=== PATIENT | male | born 1995 | race Caucasian/White ===

== ENCOUNTER 2019-03-07 19:15 | Emergency (ER) | payer OTHER ==
[2019-03-07 19:40] VITALS: BP 116/75; PULSE 64; TEMP 97.5; BMI 33.6
[2019-03-07] MEDS ORDERED: IBUPROFEN 400 MG TABLET (FP) PO ONE ×2 (19:45→19:46)
--- NOTE | 2019-03-07 19:48 | PDOC ---
Documentation entered by Angelika Ron SCRIBE, acting as scribe for Taylor Park MD. Taylor Park MD: This documentation has been prepared by the Asaf elder Xhesika, SCRIBE, under my direction and personally reviewed by me in its entirety. I confirm that the documentation accurately reflects all work, treatment, procedures, and medical decision making performed by me. 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 The patient states he has increased pain and swelling in the area just below the rectum on the right. The patient states he took Motrin at around 1:30pm with mild to no relief. The patient denies chest pain, shortness of breath, headache or dizziness. The patient denies fever, chills, nausea, vomit, diarrhea or constipation. The patient denies dysuria, frequency, urgency or hematuria. PAST MEDICAL HISTORY: Turrets disease and previous abscess (under L axillary) PAST SURGICAL HISTORY: no significant history FAMILY HISTORY: no pertinent history SOCIAL HISTORY: Pt lives with family and is employed. MEDICATIONS: reviewed ALLERGIES: As per nursing notes 03/07/19 19:48 Procedure note: Incision and drainage of an abscess Abscess was anesthetized with 1% lidocaine and then opened with a #11 blade approximately 1 mL opening Amount of purulent material was immediately drained and on expression further purulent material Patient's were broken up and packing was placed in the abscess cavity He was placed and patient was given Motrin prior to discharge Assessment plan: This is a 46-year-old male comes in with an abscess of his upper scrotal area just below the rectum. Patient has had similar abscesses in his axilla in the past. Abscesses draining at the time of my evaluation abscess was incised and drained and packing was placed. Patient discharged with instructions on wound care and hot soaks Past History - Past Medical History Allergies/Adverse Reactions: Allergies Allergy/AdvReac Type Severity Reaction Status Date / Time diphenhydramine Allergy Unknown Verified 03/07/19 19:22 Penicillins Allergy Unknown Verified 03/07/19 19:22 vancomycin Allergy Unknown Verified 03/07/19 19:22 Home Medications: Ambulatory Orders Ibuprofen 600 mg PO TID PRN 03/07/19 Review of Systems - Review of Systems Able to Perform ROS?: Yes Comments:: 03/07/19 19:50 General: No fevers or chills, no weakness, no weight loss HEENT: No change in vision. No sore throat,. No ear pain CardioVascular: No chest pain or shortness of breath Respiratory:No cough, or wheezing. Gastrointestinal: no nausea, vomiting, diarrhea or constipation, No rectal bleeding Genitourinary: No dysuria, hematuria, or frequency Musculoskeletal: No joint or muscle pain or swelling Neurologic: No headache, vertigo, dizziness or loss of consciousness Psychiatric: nor depression Skin: (+) abscess below R rectum. No easy bruising Endocrine: no increased thirst or abnormal weight change Allergic: no skin or latex allergy All other systems reviewed and normal *Physical Exam - Vital Signs Last Vital Signs Temp Pulse Resp BP Pulse Ox 97.5 F L 64 18 116/75 100 03/07/19 19:21 03/07/19 19:21 03/07/19 19:21 03/07/19 19:21 03/07/19 19:21 - Physical Exam Comments: 03/07/19 19:51 GENERAL: The patient is awake, alert, and fully oriented, in no acute distress. HEAD: Normal with no signs of trauma. EYES: Pupils equal, round and reactive to light, extraocular movements intact, sclera anicteric, conjunctiva clear. EXTREMITIES: Normal range of motion, no edema. NEUROLOGICAL: Normal speech, normal gait. PSYCH: Normal mood, normal affect. SKIN: (+) palpable abscess/ collection on Left upper scrotum area. (+) abscess draining fluid. (+) tenderness erythema on palpation. Warm, Dry, normal turgor. *DC/Admit/Observation/Transfer Diagnosis at time of Disposition: Abscess - Discharge Dispostion Disposition: HOME Condition at time of disposition: Good Decision to Admit order: No - Referrals Referrals: Vicente Ramos MD [Primary Care Provider] - - Patient Instructions Additional Instructions: Leave the dressing in place for 24 hours tomorrow evening take the dressing off and remove the piece of gauze that is the abscess cavity. She remove the piece of gauze start hot soaks as discussed by the doctor. The hot soaks 3 times a day for 20 minutes at a time if possible if can only do it 2 times a day 2 in the morning and in the evening before bed. Tylenol or Motrin as needed for pain. Return to the emergency department immediately with ANY new, persistent or worsening symptoms. Continue any medications as previously prescribed by your physician. You should follow up with your primary doctor as soon as possible regarding today's emergency department visit. . Please make sure your doctor reviews the results of your emergency evaluation. Thank you for coming to the Emergency Department today for your care. It was a pleasure to see you today. Please note that your evaluation is INCOMPLETE until you follow-up with your doctor. - Post Discharge Activity
== END 2019-03-07 19:58 | disposition home or self-care (01) ==
LOC: FER 19:15
PROC: 0V950ZZ Drainage of Scrotum, Open Approach (ICD-10-PCS; principal; 2019-03-07)
DX: N49.2 Inflammatory disorders of scrotum (principal); F95.2 Tourette's disorder
CPT/HCPCS: 87070; 87077; 87186; 87205; 99282-25